=== PATIENT | male | born 1980 | race African-American/Black ===

== ENCOUNTER 2019-07-05 08:30 | Emergency (ER) | payer SELFPAY ==
[2019-07-05] MEDS ORDERED: HYDROCODONE/ACETAMINOPHEN 5-325 MG TABLET PO ONE (09:32)
--- NOTE | 2019-07-05 09:46 | ER Document Report ---
ED General - General Chief Complaint: Pain All Over Stated Complaint: BACK, LEG, ARM PAIN Time Seen by Provider: 07/05/19 09:03 TRAVEL OUTSIDE OF THE [place] IN LAST 30 DAYS: No - Related Data Allergies/Adverse Reactions: No Known Allergies Allergy (Verified 12/19/15 09:51) Past Medical History - Social History Smoking Status: Current Every Day Smoker Family History: Reviewed & Not Pertinent Past Surgical History: Reports: Hx Herniorrhaphy - Immunizations Hx Diphtheria, Pertussis, Tetanus Vaccination: No Physical Exam - Vital signs Vitals: Temp Pulse Resp BP Pulse Ox 99.7 F 97 18 117/59 L 98 07/05/19 08:31 07/05/19 08:31 07/05/19 08:31 07/05/19 08:31 07/05/19 08:31 - Notes Notes: Patient presents emergency department with multiple complaints #1 is headache is located in the superior area. Is been on for the past 3 days. Is been fairly constant with no relief with Tylenol or Motrin. It came on grad ually and got progressively worse it was no thunderclap headache not the worst headache is ever had. Not associated with any nausea vomiting or abnormal vision. He is having some neck pain associated with this. Is worse with movement. Denies any trauma falls or heavy lifting. Does report that he started a new job working on [employer] about 2 weeks ago. #2 his low back pain. Is also been going on for same at a time. Pain is worse with movement and radiates down his right leg. Again is been no trauma or falls. Does some mild lifting at work but has not noticed anything that caused the pain. Has been able to continue working today. Has had some intermittent numbness in his right leg but no weakness. No numbness or weakness in the left leg. Is been no loss of bowel bladder function or abnormal sensation in the perirectal area. Is been no nausea or vomiting with this. #3 is chest pain. Located in the substernal area. Describes as a stabbing sensation worse with breathing and movements. Previous history of coronary artery disease. Pain does not change with walking he is not had any shortness of breath with this. No fevers. Has had a mild cough but no shortness of breath or diaphoresis #4 bilateral hand numbness this is been going on for about 10 days. This also started after starting his new job. He says he works on [employer] where he does continuous motion. He denies any weakness in the arm. His history of neck or back problelem #5 his abdominal pain. Is located across his lower abdomen has been going on for the past several days has been constant he has had no nausea vomiting or diarrhea appetite is been good eating does not change the pain no urinary symptoms He denies any recent fevers or night sweats. He said no recent surgeries or dental work. Said no dysuria diarrhea rashes or joint pain Past medical history is negative for diabetes hypertension or elevated cholesterol. History does smoke but does not drink Family history is negative for heart disease at an early age Review of systems pertinent positives and negatives in HPI otherwise all the systems were reviewed and acutely negative PHYSICIAN EXAM -vital signs are noted triage note and note from triage reviewed GENERAL: Well-appearing, well-nourished and in __no acute distress____ HEAD: Atraumatic, normocephalic. EYES: Pupils equal round and reactive to light, extraocular movements intact, no nystagmus or photophobia sclera anicteric, conjunctiva are normal. ENT: nares patent, oropharynx clear without exudates. Moist mucous membranes. Face is nontender NECK: supple without lymphadenopathy no meningeal signs. He does have some tenderness along the his muscles extending up into the shoulders. LUNGS: Breath sounds clear to auscultation bilaterally and equal. No wheezes rales or rhonchi. Pain extends over the anterior chest bilaterally. There is no crepitus or lesions HEART: Regular rate and rhythm without murmurs ABDOMEN: Soft, nontender, normoactive bowel sounds. Nontender even to deep palpation is no localizing tenderness in the right lower quadrant EXTREMITIES: No deformity, no edema. He does have a contusion over the right second metacarpal head minimal tenderness. Is full range of motion of the finger there is no pain with axial loading there is no malrotation and the rest of the hand is nontender NEUROLOGICAL: Alert and oriented x4. Cranial nerves he has symmetrical smile facies and shoulder shrug. His motor strength is 5/5 bilaterally in the upper and lower extremities. Toes downgoing. Sensation is intact to light touch is a negative Romberg and normal gait And no pain with straight leg raise, hip extremities his motor strength is 5/5 both flexion extension of the elbow and wrist. Interosseous muscles are 5/5. Patient is intact to pinprick and light touch throughout the hand. He does have a positive carpal tunnel compression test if Rin PSYCH: Normal mood, normal affect. SKIN: Warm, Dry, normal turgor, no rashes or lesions noted. BACK-nontender in the midline with some minimal discomfort with sitting. There is some mild tenderness in the paravertebral area CVA tenderness Differential diagnosis viral syndrome muscular skeletal strain bronchitis Course - Re-evaluation Re-evalutation: 07/05/19 11:19 ED patient is remained stable he was given a dose of Vicodin with significant provement of his pain. He had splints applied to both wrist. S he continues to have a nonfocal neurological exam is not tachycardic or tachypneic he has good O2 sats Medical decision making patient presents with multiple complaints. Wrist pain appears to be musculoskeletal and probably some carpal tunnel. This will be treated with splints and prednisone back pain appears to be more musculoskeletal in nature. He has no neurological deficits there is no red flag syndromes of a cauda equina syndrome he be treated with rest he also has evidence of pneumonia. He has no recent blocks no risk factors he looks well and can be managed as an outpatient. He will be treated with doxycycline and high-dose ampicillin his chest pain is reproducible I see no life-threatening cause of his chest pain risk factors for an acute coronary syndrome I see no indication of laboratory studies at this time because of the good absorption of the antibiotics do not feel that he needs parenteral Dictation was done using voice recognition software. There may be some grammatical errors which are unintentional I discussed results of laboratory findings and diagnostic test with patient/family. The treatment plan was explained and I reviewed the discharge instructions with them. Questions were answered. The patient/family verbalizes understanding 07/05/19 11:20 07/05/19 11:22 - Vital Signs Vital signs: Temp Pulse Resp BP Pulse Ox 99.7 F 97 14 113/63 100 07/05/19 08:37 07/05/19 08:37 07/05/19 10:00 07/05/19 10:00 07/05/19 10:00 - Diagnostic Test Radiology reviewed: Reports reviewed - EKG Interpretation by Me Additional EKG results interpreted by me: 07/05/19 11:18 EKG read by me shows a sinus tachycardia with some baseline artifact and some minimal nonspecific ST wave changes which include flattening of the T waves no old EKGs for comparison Discharge - Discharge Clinical Impression: Carpal tunnel syndrome on both sides Pneumonia Qualifiers: Pneumonia type: due to unspecified organism Laterality: left Lung location: lower lobe of lung Qualified Code(s): J18.9 - Pneumonia, unspecified organism Back strain Qualifiers: Encounter type: initial encounter Qualified Code(s): S39.012A - Strain of muscle, fascia and tendon of lower back, initial encounter Neck strain Qualifiers: Encounter type: initial encounter Qualified Code(s): S16.1XXA - Strain of muscle, fascia and tendon at neck level, initial encounter Disposition: HOME, SELF-CARE Instructions: Oral Narcotic Medication ([facility]), Chest Wall Pain ([facility]) Additional Instructions: Low Back Pain Three out of every four people will have an episode of disabling back pain during their lifetime. Most commonly the pain is due to straining of the muscles and ligaments in the low back. Usual treatment includes: (1) Rest on a firm surface. Avoid lying on your stomach. (2) Ice pack the painful area. After a few days, gentle heat may be used intermittently to relax the area, or ice packs can be continued. (3) Medication may be needed -- muscle relaxers and antiinflammatory medicines are commonly used. (4) As the back improves, exercises are prescribed to strengthen the back and abdominal muscles. Your doctor will advise you on the proper care for your back at each stage in your recovery. You may be better in a few days -- or healing may take several weeks. If new symptoms of a "herniated disc" (radiation of pain, numbness, or tingling down the back of the leg or weakness in the leg) occur, you should be re-examined. Further testing may be necessary.Pneumonia Your examination indicates that you have pneumonia. This is an infection of the lung tissue, usually caused by bacteria or a virus. Symptoms include cough, fever, shaking chills, chest pain, shortness of breath, and coughing up bloody sputum. Treatment for bacterial pneumonia includes rest, antibiotics for 10 to 14 days, increasing your clear liquid intake, a cool mist humidifier at your bedside, and fever medication. Often, a repeat chest X-ray is performed in a few weeks--even if you feel better--to ascertain whether the infection has completely resolved and no underlying lung problem is present. You should call the physician if you develop persistent vomiting, high fever that does not respond to fever medication, increasing shortness of breath, confusion, or lethargy. Also, failure to improve within two to three days is an indication for re-examination.Carpal Tunnel Syndrome Your examination suggests carpal tunnel syndrome. This syndrome is due to pressure on a nerve in the wrist. The pressure may be caused by an old injury, hard work using the wrist, work involving repeated motions of the hand, wrist positions that keep pressure on the joint, or arthritis in the wrist. Typical symptoms are tingling, numbness, and pain in the palm, thumb, index and middle fingers, and one side of the ring finger. Often a splint, ice packs, and antiinflammatory medication make the symptoms go away. If the physician feels that your problem is chronic, you will be referred to a specialist for further care. If symptoms do not go away, carpal tunnel syndrome may require surgery. You should call the doctor if pain increases, if you develop difficulty using the thumb or fingers, or if major swelling occurs. Please review the discharge instructions, they will tell you about your disease/injury and what you need to return to the ED for Return to the ED if you feel worse or can follow-up with your family doctor The pain medications may cause drowsiness. Be careful if you are using crutches. Do not drive or operate machinery. Do not take Tylenol with the pain medication If you have a fever you can take Motrin Drink plenty of fluids Avoid bending or heavy lifting Follow-up in the clinic in 2 to 3 days if not better otherwise in 2 weeks for recheck Return to the ED if you develop persistent vomiting increasing shortness of breath fever the last for more than 2 to 3 days Wear the splints for 5 days at night as needed for pain Prescriptions: Amoxicillin 2 tab PO TID #21 tab Prednisone [Deltasone 20 mg Tablet] 60 mg PO DAILY #15 tablet Doxycycline Hyclate 100 mg PO BID #14 capsule Hydrocodone/Acetaminophen [Campo 5-325 mg Tablet] 1 - 2 tab PO ASDIR PRN #10 tablet PRN Reason: Forms: Smoking Cessation Education, Return to Work Referrals: [facility] [Provider Group] - Follow up as needed (Follow-up in 2 to 3 days if not better otherwise in 10 DAYS days)
--- NOTE | 2019-07-05 11:00 | RADIOLOGY REPORT (SQ) ---
EXAM DESCRIPTION: CHEST 2 VIEWS COMPLETED DATE/TIME: 07/05/2019 10:22 am REASON FOR STUDY: Chest pain COMPARISON: None. EXAM PARAMETERS: NUMBER OF VIEWS: two views TECHNIQUE: Digital Frontal and Lateral radiographic views of the chest acquired. RADIATION DOSE: NA LIMITATIONS: none FINDINGS: LUNGS AND PLEURA: There is opacification the left base. The left hemidiaphragm is indisti nct. MEDIASTINUM AND HILAR STRUCTURES: No masses or contour abnormalities. HEART AND VASCULAR STRUCTURES: Heart normal size. No evidence for failure. BONES: No acute findings. HARDWARE: None in the chest. OTHER: No other significant finding. IMPRESSION: Left lower lobe pneumonia. TECHNICAL DOCUMENTATION: JOB ID: [id number] [employer]- All Rights Reserved Reading location - IP/workstation name: [email or web address]
[2019-07-05] MEDS ORDERED: AMOXICILLIN TRIHYDRATE 500 MG CAPSULE PO ONE (11:31)
[2019-07-05] MEDS ORDERED: DOXYCYCLINE HYCLATE 100 MG TABLET PO ONE (11:31)
--- NOTE | 2019-07-05 12:44 | EKG REPORT ---
SEVERITY:- ABNORMAL ECG - SINUS TACHYCARDIA BIATRIAL ABNORMALITIES BORDERLINE T WAVE ABNORMALITIES : Confirmed by: Mckenzie Trent MD 05-Jul-2019 12:43:46
[2019-07-05 13:10] VITALS: BP 138/72
== END 2019-07-05 13:08 | disposition home or self-care (01) ==
LOC: ER 08:30
DX: J18.9 Pneumonia, unspecified organism (principal); S39.012A Strain of muscle, fascia and tendon of lower back, initial encounter; S16.1XXA Strain of muscle, fascia and tendon at neck level, initial encounter; G56.03 Carpal tunnel syndrome, bilateral upper limbs; R51 Headache; R07.9 Chest pain, unspecified; R20.0 Anesthesia of skin; R10.30 Lower abdominal pain, unspecified; M54.9 Dorsalgia, unspecified; M79.606 Pain in leg, unspecified; M79.603 Pain in arm, unspecified; X58.XXXA Exposure to other specified factors, initial encounter; F17.200 Nicotine dependence, unspecified, uncomplicated
CPT/HCPCS: 93005; 99285; 71046; 93010; L3908

== ENCOUNTER 2019-07-07 15:49 | Emergency (ER) | payer SELFPAY ==
--- NOTE | 2019-07-07 16:18 | ER Document Report ---
ED Medical Screen (RME) - General Chief Complaint: Medication Refill Stated Complaint: MEDICATION SEEKING Time Seen by Provider: 07/07/19 16:11 Mode of Arrival: Ambulatory Information source: Patient Notes: This 38-year-old male who is normally relatively healthy presents emergency department with reports he was recently diagnosed with pneumonia on Friday. He reports past Friday he woke up coughing chest pains body aches. He came to the emergency department on Friday because his arms and legs were cramping up he was waking up vomiting. He was diagnosed with pneumonia at that time placed on antibiotics, prescription for hydrocodone for the pain. He reports he has not slept since that time still coughing waking up complaining his chest is hurting then vomiting. Reports he is sweating at night. I have greeted and performed a rapid initial assessment of this patient. A comprehensive ED assessment and evaluation of the patient, analysis of test results and completion of the medical decision making process will be conducted by additional ED providers. TRAVEL OUTSIDE OF THE [place] IN LAST 30 DAYS: No - Related Data Allergies/Adverse Reactions: No Known Allergies Allergy (Verified 07/07/19 16:09) Past Medical History Past Surgical History: Reports: Hx Herniorrhaphy - Immunizations Hx Diphtheria, Pertussis, Tetanus Vaccination: No Physical Exam - Vital signs Vitals: Temp Pulse Resp BP Pulse Ox 97.9 F 74 20 106/68 98 07/07/19 15:52 07/07/19 15:52 07/07/19 15:52 07/07/19 15:52 07/07/19 15:52 Course - Vital Signs Vital signs: Temp Pulse Resp BP Pulse Ox 97.9 F 74 20 106/68 98 07/07/19 15:52 07/07/19 15:52 07/07/19 15:52 07/07/19 15:52 07/07/19 15:52
[2019-07-07 16:58] LABS: HEMATOCRIT 42.7 % (37.9-51.0); HEMOGLOBIN 14.8 g/dL (13.5-17.0); MEAN CORPUSCULAR HEMOGLOBIN 32.3 pg (27.0-33.4); MEAN CORPUSCULAR HGB CONC 34.7 g/dL (32.0-36.0); MEAN CORPUSCULAR VOLUME 93 fl (80-97); PLATELET COUNT 292 10^3/uL (150-450); RED BLOOD COUNT 4.58 10^6/uL (4.35-5.55); RED CELL DISTRIBUTION WIDTH 13.2 % (11.5-14.0); WHITE BLOOD COUNT 14.9 10^3/uL (4.0-10.5)
--- NOTE | 2019-07-07 17:11 | RADIOLOGY REPORT (SQ) ---
EXAM DESCRIPTION: CHEST 2 VIEWS COMPLETED DATE/TIME: 07/07/2019 4:46 pm REASON FOR STUDY: cough worsening, hx pneumonia COMPARISON: 07/05/2019 EXAM PARAMETERS: NUMBER OF VIEWS: two views TECHNIQUE: Digital Frontal and Lateral radiographic views of the chest acquired. RADIATION DOSE: NA LIMITATIONS: none FINDINGS: LUNGS AND PLEURA: Interval improvement of heterogeneous opacity of the left lung base. MEDIASTINUM AND HILAR STRUCTURES: No masses or contour abnormalities. HEART AND VASCULAR STRUCTURES: Heart normal size. No evidence for failure. BONES: No acute findings. HARDWARE: None in the chest. OTHER: No other significant finding. IMPRESSION: Interval improvement of heterogeneous opacity of the left lung base, consistent with rad iographically improving infection. There is no new airspace opacity. CT may be used to further eval uate if desired. TECHNICAL DOCUMENTATION: JOB ID: [id number] [employer]- All Rights Reserved Reading location - IP/workstation name: [email or web address]
[2019-07-07 17:26] LABS: ABSOLUTE LYMPHOCYTES# (MANUAL) 0.7 10^3/uL (0.5-4.7); ABSOLUTE MONOCYTES # (MANUAL) 0.3 10^3/uL (0.1-1.4); BAND NEUTROPHILS % (MANUAL) 6 % (3-5); BASOPHILS % (MANUAL) 0 % (0-2); EOSINOPHILS % (MANUAL) 0 % (0-6); LYMPHOCYTES % (MANUAL) 5 % (13-45); MONOCYTES % (MANUAL) 2 % (3-13); SEGMENTED NEUTROPHILS % (MAN) 87 % (42-78); TOTAL CELLS COUNTED 100
[2019-07-07 17:27] LABS: PLATELET COMMENT ADEQUATE; RBC MORPHOLOGY COMMENT NORMO-CYTIC/CHROMIC
[2019-07-07 17:31] LABS: A TYPE INFLUENZA AG NEGATIVE (NEGATIVE); B INFLUENZA AG NEGATIVE (NEGATIVE)
[2019-07-07 17:46] LABS: ALBUMIN 3.7 g/dL (3.5-5.0); ALKALINE PHOSPHATASE 92 U/L (38-126); ANION GAP 12 (5-19); ASPARTATE AMINO TRANSFERASE 165 U/L (17-59); BILIRUBIN,DIRECT 0.4 mg/dL (0.0-0.4); BILIRUBIN,TOTAL 0.6 mg/dL (0.2-1.3); BLOOD UREA NITROGEN 15 mg/dL (7-20); CALCIUM 9.4 mg/dL (8.4-10.2); CARBON DIOXIDE 26 mmol/L (22-30); CHLORIDE 99 mmol/L (98-107); GLUCOSE 124 mg/dL (75-110); POTASSIUM 4.6 mmol/L (3.6-5.0); TOTAL PROTEIN 6.8 g/dL (6.3-8.2)
[2019-07-07] MEDS ORDERED: HYDROCODONE/ACETAMINOPHEN 5-325 MG (6 TAB/ER DISP) PO PRN ×2 (19:22→19:59)
--- NOTE | 2019-07-07 20:06 | ER Document Report ---
ED Respiratory Problem - General Chief Complaint: Shortness Of Breath Stated Complaint: MEDICATION SEEKING Time Seen by Provider: 07/07/19 16:11 Mode of Arrival: Ambulatory Notes: 38-year-old healthy male presents the emergency department for persistent shortness of breath, neck pain, right arm pain. Patient states he was diagnosed with pneumonia here on Friday and placed on antibiotics and burst dose steroids. Patient states that the symptoms all started this past Friday when he woke up with cough, chest pain, body pains. Patient woke up vomiting on Friday prompting him to get seen then. Today he says that he has persistent symptoms and does not understand why "I am still in pain". Patient has been taking his antibiotics as prescribed and has been on them for 2 days. Patient denies any fevers or chills, denies nausea or vomiting, denies abdominal pain, currently denies nausea/vomiting/diarrhea. No other complaints. TRAVEL OUTSIDE OF THE [place] IN LAST 30 DAYS: No - Related Data Allergies/Adverse Reactions: No Known Allergies Allergy (Verified 07/07/19 16:09) Past Medical History - General Information source: Patient - Social History Smoking Status: Never Smoker Frequency of alcohol use: None Drug Abuse: None Family History: Reviewed & Not Pertinent Patient has suicidal ideation: No Patient has homicidal ideation: No Past Surgical History: Reports: Hx Herniorrhaphy - Immunizations Hx Diphtheria, Pertussis, Tetanus Vaccination: No Review of Systems - Review of Systems Constitutional: See HPI EENT: No symptoms reported Cardiovascular: See HPI Respiratory: See HPI Gastrointestinal: See HPI Genitourinary: No symptoms reported Male Genitourinary: No symptoms reported Musculoskeletal: No symptoms reported Skin: No symptoms reported Hematologic/Lymphatic: No symptoms reported Neurological/Psychological: See HPI Physical Exam - Vital signs Vitals: Temp Pulse Resp BP Pulse Ox 97.9 F 74 20 106/68 98 07/07/19 15:52 07/07/19 15:52 07/07/19 15:52 07/07/19 15:52 07/07/19 15:52 - Notes Notes: PHYSICAL EXAMINATION: Reviewed vital signs and charting by RN GENERAL: Alert, interacts well. Mild distress. HEAD: Normocephalic, atraumatic. EYES: Pupils equal and round. Extraocular movements intact. ENT: Oral mucosa moist, tongue midline. NECK: Full range of motion. Trachea midline. LUNGS: Inspiratory crackles heard in left lower lobe. No respiratory distress. HEART: Regular rate and rhythm. No murmur ABDOMEN: soft, non-tender. No distention. Bowel sounds present EXTREMITIES: Moves all 4 extremities spontaneously. No edema, No cyanosis. PSYCH: Normal affect, normal mood. SKIN: Warm, dry, normal turgor. No rashes or lesions noted. Course - Re-evaluation Re-evalutation: 07/07/19 20:05 Patient presents back to the emergency department for persistent cough and body aches. I explained to patient that he is only been on antibiotics for 2 days and they probably just now started to take effect. Patient needed some additional education. He denies fevers or chills and is nontoxic-appearing. Vital signs within normal limits. Lab work did show a leukocytosis of 15,900. Chest x-ray did show interval improvement of a left lower lobe consolidation indicating that the antibiotic treatment is working. I explained all of this to patient and explained to him that his right arm pain is most likely repetitive use injury as he just started a new job at a [employer] and is performing the same motion constantly all day. Patient has been given strict return precautions and is stable for discharge. - Vital Signs Vital signs: Temp Pulse Resp BP Pulse Ox 97.9 F 74 20 106/68 98 07/07/19 15:52 07/07/19 15:52 07/07/19 15:52 07/07/19 15:52 07/07/19 15:52 - Laboratory Result Diagrams: 07/07/19 16:30 07/07/19 16:30 Laboratory results interpreted by me: 07/07/19 07/07/19 16:30 16:30 WBC 14.9 H Seg Neuts % (Manual) 87 H Band Neutrophils % 6 H Lymphocytes % (Manual) 5 L Monocytes % (Manual) 2 L Abs Neuts (Manual) 13.9 H Sodium 136.6 L Glucose 124 H AST 165 H Discharge - Discharge Clinical Impression: Pneumonia Qualifiers: Pneumonia type: due to unspecified organism Laterality: left Lung location: lower lobe of lung Qualified Code(s): J18.9 - Pneumonia, unspecified organism Condition: Good Disposition: HOME, SELF-CARE Additional Instructions: You have been diagnosed with a pneumonia it is still present on chest x-ray today. It is very important that you take all of your antibiotics until they are gone even if you are feeling better. Please return to the emergency department immediately if you began having worsening shortness of breath, become confused, have worsening pain, pass out, have persistent vomiting that prevents you from being able to drink fluids for more than 12 hours, or have any other symptoms that are worrisome to you. Please follow-up with your primary care doctor in the next 1-2 days. I suspect that your neck pain and right arm pain and numbness is from repetitive use type of injury since she started your new job. You can take ibuprofen 600 mg every 6 hours with food and/or milk. Return to the emergency department if you develop acute paralysis of the arm and you are not able to use it at all.
--- NOTE | 2019-07-07 20:09 | EKG REPORT ---
SEVERITY:- NORMAL ECG - SINUS RHYTHM : Confirmed by: Mckenzie Trent MD 07-Jul-2019 20:08:32
[2019-07-07 20:34] VITALS: BP 128/64
== END 2019-07-07 20:33 | disposition home or self-care (01) ==
LOC: ER 15:49
DX: J18.9 Pneumonia, unspecified organism (principal); R06.02 Shortness of breath; M54.2 Cervicalgia; M79.601 Pain in right arm; D72.829 Elevated white blood cell count, unspecified
CPT/HCPCS: 71046; 80053; 85025; 87804; 93005; 93010; 99283

== ENCOUNTER 2019-08-01 18:29 | Emergency (ER) | payer SELFPAY ==
[2019-08-01 18:47] VITALS: BP 122/77
[2019-08-01] MEDS ORDERED: LIDOCAINE 5% (700 MG) TRANSDERMAL ADH..PATCH TP ONE (19:07)
[2019-08-01] MEDS ORDERED: HYDROCODONE/ACETAMINOPHEN 5-325 MG (6 TAB/ER DISP) PO PRN (19:07)
[2019-08-01] MEDS ORDERED: IBUPROFEN 800 MG TABLET PO ONE (19:07)
--- NOTE | 2019-08-01 19:10 | ER Document Report ---
HPI - HPI Patient complains to provider of: Low back pain Time Seen by Provider: 08/01/19 18:59 Onset: Other - 5 days Onset/Duration: Persistent Quality of pain: Sharp Pain Level: 5 Context: Patient states that he was bending over lifting up something heavy 5 days ago and developed low back pain. Patient denies any radiculopathy or paresthesia. Patient denies any urinary retention or incontinence. Patient denies any fever or history of IV drug use. Associated Symptoms: Other - Low back pain. denies: Fever, Nausea Exacerbated by: Standing, Movement, Walking Relieved by: Denies Similar symptoms previously: Yes Recently seen / treated by doctor: No - ROS ROS below otherwise negative: Yes Systems Reviewed and Negative: Yes All other systems reviewed and negative - CONSTITUTIONAL Constitutional: DENIES: Fever, Chills - NEURO Neurology: DENIES: Weakness - GASTROINTESTINAL Gastrointestinal: DENIES: Nausea - MUSCULOSKELETAL Musculoskeletal: REPORTS: Back Pain. DENIES: Extremity pain - DERM Skin Color: Normal Skin Problems: None Past Medical History - General Information source: Patient - Social History Smoking Status: Current Some Day Smoker Frequency of alcohol use: Occasional Drug Abuse: None Lives with: Spouse/Significant other Family History: Reviewed & Not Pertinent Patient has suicidal ideation: No Patient has homicidal ideation: No - Medical History Medical History: Negative Past Surgical History: Reports: Hx Herniorrhaphy - Immunizations Hx Diphtheria, Pertussis, Tetanus Vaccination: No Vertical Provider Document - CONSTITUTIONAL Agree With Documented VS: Yes Exam Limitations: No Limitations General Appearance: WD/WN, No Apparent Distress Notes: PHYSICAL EXAMINATION: GENERAL: Well-appearing, well-nourished and in no acute distress. HEAD: Atraumatic, normocephalic. EYES: sclera clear, anicteric, conjunctiva are normal. ENT: nares patent, Moist mucous membranes. NECK: Normal range of motion, supple no lymphadenopathy LUNGS: respirations unlabored HEART: Regular rate and rhythm without murmurs EXTREMITIES: Normal range of motion, no pitting or edema. No cyanosis. Gait normal, pt ambulates without difficulty BACK: Lumbar paraspinal tenderness, lower lumbar midline tenderness, no deformities or step-offs. No CVA tenderness. NEUROLOGICAL: Cranial nerves grossly intact. Normal speech, normal gait. No saddle anesthesia. PSYCH: Normal mood, normal affect. SKIN: Warm, Dry, normal turgor, no rashes or lesions noted. - INFECTION CONTROL TRAVEL OUTSIDE OF THE [place] IN LAST 30 DAYS: No Course - Re-evaluation Re-evalutation: 08/01/19 19:09 The patient presents with low back pain without signs of spinal cord compression, cauda equina syndrome, infection, aneurysm, or other serious etiology. The patient is neurologically intact. Given the extremely risk of these diagnoses further testing and evaluation for these possibilities does not appear to be indicated at this time. Patient has been instructed to return if the symptoms worsen or change in any way. - Vital Signs Vital signs: Temp Pulse Resp BP Pulse Ox 98.4 F 89 20 122/77 98 08/01/19 18:46 08/01/19 18:46 08/01/19 18:46 08/01/19 18:46 08/01/19 18:46 Discharge - Discharge Clinical Impression: Low back pain Qualifiers: Chronicity: acute Back pain laterality: bilateral Sciatica presence: without sciatica Qualified Code(s): M54.5 - Low back pain Condition: Stable Disposition: HOME, SELF-CARE Instructions: Ice Packs ([facility]), Low Back Pain ([facility]), Oral Narcotic Medication ([facility]) Additional Instructions: Return immediately for any new or worsening symptoms Followup with your primary care provider, call tomorrow to make a followup appointment Prescriptions: Cyclobenzaprine HCl [Flexeril 10 Mg Tablet] 10 mg PO TID #15 tablet Lidocaine [Lidoderm 5% (700 mg) Transdermal Patch] 1 patch TP DAILY PRN #10 adh..patch PRN Reason: Naproxen [Naprosyn 250 Nmg Tablet] 1 tab PO BID #14 tablet Referrals: [facility] [Provider Group] - Follow up as needed [facility] [Provider Group] - Follow up as needed
== END 2019-08-01 19:53 | disposition home or self-care (01) ==
LOC: ER 18:29
DX: M54.5 Low back pain (principal); X50.0XXA Overexertion from strenuous movement or load, initial encounter; F17.200 Nicotine dependence, unspecified, uncomplicated
CPT/HCPCS: 99283